=== PATIENT | female | born 1985 | race Caucasian/White ===

== ENCOUNTER 2017-10-16 13:04 | Observation (INO) | payer OTHER ==
[~2017-10-16] VITALS: Ht 154.9 cm; Wt 56.0 kg
[~2017-10-16 13:04] MED LIST: CEPH500 PO; LEVA750T PO; LORTA5 PO; TAB-TAB PO; ZOFR8TAB PO
[2017-10-16] MEDS ORDERED: TERBUTALINE INJ 1 MG/ML AMP ONE (13:43)
[2017-10-16] MEDS ORDERED: TERBUTALINE INJ 1 MG/ML AMP SQ STA (13:50)
--- NOTE | 2017-10-16 13:50 | PD ---
HPI Chief Complaint Abdominal pain Date Seen: October 16, 2017 Time Seen: 13:45 Travel History International Travel<30 Days: No Contact w/Intl Traveler<30Days: No Known Affected Area: No History of Present Illness HPI 32-year-old who is at 21 weeks 4 days comes in complaining abdominal pain. She states that her belly is getting extremely tight and it woke her up from sleep approximately 30 minutes to an hour ago. It was not associated with vaginal bleeding, vaginal discharge or ruptured membranes. Patient did have intercourse approximately 2 hours ago and during intercourse had significant orgasmic activity and took a nap. No previous episodes this . Denies pain or trauma during coitus. Weeks Gestation: 21 Para: 1 : 2 History Past Medical History Medical History: Denies Significant Hx Obstetric History Obstetric History at term Past Surgical History Narrative Surgical Benign tumor Family History Family History: Negative Social History Alcohol Use: No Tobacco Use: No Substance Abuse: No Allergies-Medications (Allergen,Severity, Reaction): Coded Allergies: No Known Allergies (Verified Adverse Reaction, Unknown, 10/16/17) Home Meds Active Scripts Ondansetron Hcl (Zofran Tab) 8 Mg Tab, 4 MG PO Q6HR Y for NAUSEA, #12 TAB Prov:Wilton Hutchins MD 06/20/15 Cephalexin Monohydrate (Keflex 500 mg Cap) 500 Mg Cap, 500 MG PO Q6HR for Infection for 7 Days, CAP Prov:Wilton Hutchins MD 06/20/15 Levofloxacin (Levaquin 750 Mg Tab) 750 Mg Tab, 750 MG PO DAILY for Infection for 7 Days, TAB Prov:Wilton Hutchins MD 06/20/15 Hydrocodone/Acetaminophen 5 mg/325 mg (Hydrocodone/Acetaminophen 5 mg/325 mg) 1 Tab Tab, 1 TAB PO Q6HR Y for pain, #28 TAB Prov:Wilton Hutchins MD 06/19/15 Reported Medications Multiple Vitamin (Multivitamin) 1 Tab Tab, 1 TAB PO DAILY, TAB 06/19/15 Review of Systems Except as stated in HPI: all other systems reviewed are Neg Physical Exam Narrative GENERAL: Well-nourished, well-developed patient. SKIN: Warm and dry. HEAD: Normocephalic and atraumatic. EYES: No scleral icterus. No injection or drainage. ENT: No nasal drainage noted. Mucous membranes pink. Airway patent. NECK: Supple, trachea midline. No JVD. CARDIOVASCULAR: Regular rate and rhythm without murmurs, gallops, or rubs. RESPIRATORY: Breath sounds equal bilaterally. No accessory muscle use. ABDOMEN/GI: Abdomen soft, non-tender, bowel sounds present, no rebound, no guarding Gravid to [-20] weeks size. Moderately firm uterine contractions noted Fundal Height: [-] GENITOURINARY: External Genitalia: intact and normal in appearance BUS glands: [-] Normal Cervix: [-] Visually closed on sterile speculum examination. Possible yeast infection noted with discharge Dilatation: [-] Effacement: [-] Station: [-] Presentation: [-] Membranes: [intact or ruptured] Uterine Contractions: [-] FHT's: Doppler 148 Category: [-] Baseline: [-] Reactive: [-] Variability: [-] Decels: [-] EXTREMITIES: No cyanosis or edema. BACK: Nontender without obvious deformity. No CVA tenderness. NEUROLOGICAL: Awake and alert. Motor and sensory grossly within normal limits. Five out of 5 muscle strength in all muscle groups. Normal speech. Patient was given 1 liter of LR with .25mg of Terbutaline with much improvement in symptoms. Patient is, however still quite sore and apprehensive. Will admit for observation given her symptoms. Data Data Vital Signs Reviewed: Yes Orders Orders Terbutaline Inj (Brethine Inj) (10/16/17 13:43) [facility] Medical Record Reviewed: Yes Plan 32yo at 21w4d with post coital tetanic contractions s/p terbutaline and hydration 23 hr obs with pain meds prn Diagnosis Diagnosis: Primary Impression: 21 weeks gestation of Additional Impression: Abdominal pain during in second trimester Makenzie Tariq MD October 16, 2017 13:50
[2017-10-16] MEDS ORDERED: LACTATED RINGER'S 1000 ML INJ 1,000 ML IV ONE (14:00)
[2017-10-16] MEDS ORDERED: LACTATED RINGER'S 1000 ML INJ 1,000 ML IV SCH (15:10)
[2017-10-16] MEDS ORDERED: SODIUM CHLORIDE 0.9% FLUSH 10 ML FLUSH IV FLUSH PRN (15:15)
[2017-10-16 15:24] LABS: BACTERIA, URINE RARE /hpf; BILIRUBIN, URINE NEG (NEG); BLOOD, URINE NEG (NEG); GLUCOSE,URINE NEG (NEG); KETONE, URINE NEG (NEG); NITRITE,URINE NEG (NEG); SQUAMOUS EPITHELIAL CELL URINE 2 /hpf (0-5); URINE COLOR COLORLESS (YELLW/STRAW); URINE LEUKOCYTE ESTERASE MOD (NEG)
[2017-10-16 15:26] LABS: AUTOMATED NEUTROPHIL # 5.8 TH/MM3 (1.8-7.7); BASOPHIL % 0.3 % (0.0-2.0); EOSINOPHIL % 0.5 % (0.0-4.0); HEMATOCRIT 35.7 % (35.0-46.0); HEMOGLOBIN 12.3 GM/DL (11.6-15.3); LYMPH % 25.4 % (9.0-44.0); LYMPHOCYTE # 2.2 TH/MM3 (1.0-4.8); MEAN CELL VOLUME 86.6 FL (80.0-100.0); MEAN CORPUSCULAR HEMOGLOBIN 29.8 PG (27.0-34.0); MEAN CORPUSCULAR HGB CONC 34.5 % (32.0-36.0); MEAN PLATELET VOLUME 7.8 FL (7.0-11.0); MONO % 6.5 % (0.0-8.0); MONOCYTE # 0.6 TH/MM3 (0-0.9); NEUT % 67.3 % (16.0-70.0); PLATELET COUNT 243 TH/MM3 (150-450); RED BLOOD COUNT 4.12 MIL/MM3 (4.00-5.30); RED CELL DISTRIBUTION WIDTH 14.3 % (11.6-17.2); WHITE BLOOD COUNT 8.6 TH/MM3 (4.0-11.0)
[2017-10-16] MEDS: ACETAMINOPHEN 325 MG TAB PO PRN ×2 (15:29→19:22)
[2017-10-16 15:42] LABS: ALBUMIN 3.3 GM/DL (3.4-5.0); AST (GOT) 15 U/L (15-37); BICARBONATE 21.5 MEQ/L (21.0-32.0); BLOOD UREA NITROGEN 12 MG/DL (7-18); CALCIUM 9.3 MG/DL (8.5-10.1); CHLORIDE 106 MEQ/L (98-107); CREATININE 0.68 MG/DL (0.50-1.00); GLOMERULAR FILTRATION RATE 102 ML/MIN (>89); GLUCOSE,RANDOM 82 MG/DL (74-106); SODIUM (NA) 139 MEQ/L (136-145)
[2017-10-16 15:43] LABS: ALT (GPT) 22 U/L (10-53)
[2017-10-16 15:45] LABS: ALKALINE PHOSPHATASE 81 U/L (45-117); TOTAL BILIRUBIN ADULT 0.3 MG/DL (0.2-1.0); TOTAL PROTEIN 7.6 GM/DL (6.4-8.2)
[2017-10-16] MEDS ORDERED: SODIUM CHLORIDE 0.9% FLUSH 10 ML FLUSH IV FLUSH SCH (21:00)
--- NOTE | 2017-10-17 09:44 | HHI.PR ---
[employer] Note Note pt doing well, denies abdominal pain u/s done WNL cervical length 41mm heart rate regular lungs CTA anterior and posterior abd soft nontender no swelling or pain to lower extremities pt will be d/c and has f/u next week Ashley Mccarthy October 17, 2017 09:44
--- NOTE | 2017-10-17 10:06 | HHI.DCPOC ---
Discharge Care Plan Diagnosis: (1) 21 weeks gestation of (2) Abdominal pain during in second trimester Report Symptoms to Your Doctor -Temperature above 100.5 degrees -Redness, of incision or excessive or foul smelling drainage -Unusual pain or calf pain -Increased vaginal bleeding -Painful or difficulty urinating -Feelings of extreme sadness or anxiety after 2 weeks Goals to Promote Your Health * To prevent worsening of your condition and complications * To maintain your health at the optimal level Directions to Meet Your Goals Take your medications as prescribed Follow your dietary instruction Follow activity as directed Ensure plenty of rest for recovery Drink fluids for hydration Keep your appointments as scheduled Take your immunizations and boosters as scheduled If your symptoms worsen call your PCP, if no PCP go to Urgent Care Center or Emergency Room Smoking is Dangerous to Your Health. Avoid second hand smoke Call the 24-hour crisis hotline for domestic abuse at Ashley Mccarthy October 17, 2017 10:06
== END 2017-10-17 10:58 | disposition home or self-care (01) ==
LOC: HOBED 13:04 → H2EA 15:25
PROVIDERS: ADMIT Obstetrics & Gynecology; ATTEND Obstetrics & Gynecology
DX: O99.89 Other specified diseases and conditions complicating pregnancy, childbirth and the puerperium (principal); R10.9 Unspecified abdominal pain; Z3A.21 21 weeks gestation of pregnancy
CPT/HCPCS: 76816; 80053; 81001; 85025; 96360; 96372; 99285; G0378; J3105; J7120

== ENCOUNTER 2018-02-10 03:59 | Inpatient (IN) ==
[2018-02-10] MEDS ORDERED: Penicillin G Potassium Inj 5,000,000 UNIT in Sodium Chloride 0.9% Inj 100 ML IV.SIG ONE (04:16)
[2018-02-10] MEDS ORDERED: Sodium Chlor 0.9% Inj 500 ML IV.SIG PRN (04:16)
[2018-02-10] MEDS ORDERED: Oxytocin 30 Units/500ml Premix 30 UNITS/500 ML BAG IV.SIG ONE (04:16)
[2018-02-10] MEDS ORDERED: Sod Chloride 0.9% Inj 1,000 ML IV.CONT PRN (04:16)
[2018-02-10] MEDS ORDERED: Naloxone Inj 0.4 MG/ML Vial IV.PUSH PRN ×2 (04:16→06:37)
[2018-02-10] MEDS ORDERED: fentaNYL Citrate Inj 100 MCG/2 ML Ampul IV.PUSH PRN ×2 (04:16)
[2018-02-10] MEDS ORDERED: Citric Acid/Sodium Citrate Liq 30 ML UDC PO SCH (04:30)
--- NOTE | 2018-02-10 04:45 | ED ---
History of Present Illness Primary Care Physician: Dr. Saul Parson MD Chief Complaint: Contractions History of Present Illness: 32 yo F at 38+2 presents to the hospital with contractions that started at 0200 AM this morning. Patient states that the contractions are now occurring a couple of minutes apart. Positive for blood show. movement present. Uncomplicated course. Weeks Gestation:: 38 Para: 1 : 2 Total # of Miscarriage(s): 0 - Inpatient Certification I certify that the inpatient services were ordered in accordance with Medicare regulations governing the order. This includes certification that hospital inpatient services are reasonable and necessary and in the case of services not specified as inpatient-only under 42 CFR 419.22(n), that they are appropriately provided as inpatient services in accordance to with the 2-midnight benchmark under 43 CFR 412.3(e) Estimated Total Length of Stay (Days): 2 Plans for Post Hospital Care: Home Review of Systems All other systems reviewed negative except as stated in [facility] - History History Provided By: Patient - Medical History Medical History: Medical History (Last Updated 02/10/18 @ 04:41 by Katherine Gold DO, R1) Neck mass - Surgical History Surgical History: Surgical History (Last Updated 02/10/18 @ 04:40 by Katherine Gold DO, R1) History of neck surgery - Tobacco History Smoking Status: Never smoker - Alcohol History How Often Do You Have a Drink Containing Alcohol: Never - Substance Use History Substance History: No History of Abuse Medications and Allergies Active Medications: Active Medications Citric Acid/Sodium Citrate (Sodium Citrate/Citric Acid Liq) 30 ml PO [facility] Stop: 02/14/18 04:29 Fentanyl Citrate (Fentanyl Inj) 50 mcg IV.PUSH Q1H PRN PRN Reason: Pain Scale 3 - 5 Fentanyl Citrate (Fentanyl Inj) 100 mcg IV.PUSH Q1H PRN PRN Reason: PAIN SCALE 6 TO 10 Lactated Ringer's (Lr 1000 Ml Inj) 1,000 mls @ 125 mls/hr IV.CONT .Q8H [facility] Lactated Ringer's (Lr 1000 Ml Inj) 1,000 mls @ 3,000 mls/hr IV.SIG UNSCH PRN PRN Reason: compromise or epidural Sodium Chloride (Ns Inj) 500 mls @ 1,000 mls/hr IV.SIG UNSCH PRN PRN Reason: SEE LABEL COMMENTS Sodium Chloride (Ns Inj) 1,000 mls @ 100 mls/hr IV.CONT .Q10H PRN PRN Reason: SEE LABEL COMMENTS Oxytocin (Pitocin 30 Units/Ns 500 Ml Premix) 30 units in 500 mls @ 999 mls/hr IV.SIG BOLUS ONE Stop: 02/10/18 04:46 Penicillin G Potassium 5,000, (000 unit/ Sodium Chloride) 100 mls @ 200 mls/hr IV.SIG ONCE ONE Stop: 02/10/18 04:45 Penicillin G Potassium 2,500, (000 unit/ Sodium Chloride) 100 mls @ 200 mls/hr IV.SIG Q4H [facility] Lidocaine HCl (Xylocaine 1% Inj) 10 ml INFILTRATN PRN PRN PRN Reason: For episiotomy repair Stop: 02/12/18 04:15 Lidocaine HCl (Xylocaine 1% Inj) 0.1 ml I-DERMAL PRN PRN PRN Reason: For IV start Stop: 02/13/18 04:15 Mineral Oil (Muri-Lube Oil) 10 ml TOPICAL PRN PRN PRN Reason: PRN perineal massage Naloxone HCl (Narcan Inj) 0.1 mg IV.PUSH Q2M PRN PRN Reason: for opiate reversal Ondansetron HCl (Zofran Inj) 4 mg IV.PUSH Q6H PRN PRN Reason: NAUSEA OR VOMITING Sodium Chloride (Ns Flush) 2 ml IV.FLUSH BID [place] Sodium Chloride (Ns Flush) 2 ml IV.FLUSH PRN PRN PRN Reason: FLUSH AFTER USING IV ACCESS Allergies Allergy/AdvReac Type Severity Reaction Status Date / Time No Known Allergies Allergy Verified 02/10/18 04:57 Home Medications Medication Instructions Recorded Confirmed Type PNV b#95-ferrous fumarate-FA 1 tab PO DAILY 02/10/18 02/10/18 History [] ferrous sulfate [iron] 325 mg PO DAILY 02/10/18 02/10/18 History Exam Vital signs: Vital Signs 02/10/18 04:10 02/10/18 04:15 02/10/18 04:17 Temperature 98.1 F Pulse Rate 99 H Respiratory Rate 16 Blood Pressure 129/78 Intake & Output 02/09/18 02/09/18 02/10/18 06:59 18:59 06:59 Weight 138 kg Narrative: GENERAL: Well-nourished, well-developed patient. SKIN: Warm and dry. HEAD: Normocephalic and atraumatic. EYES: No scleral icterus. No injection or drainage. ENT: No nasal drainage noted. Mucous membranes pink. Airway patent. CARDIOVASCULAR: Regular rate and rhythm without murmurs, gallops, or rubs. RESPIRATORY: Breath sounds equal bilaterally. No accessory muscle use. ABDOMEN/GI: Abdomen soft, non-tender, no rebound, no guarding GENITOURINARY: Cervix: midposition Dilation: 6 Effacement: 100 Station: -1 Presentation: Membranes: intact Contractions: every 2-5 min FHT's: Category: I Baseline: 135 Reactive: Y Variability: moderate Decels: N EXTREMITIES: No cyanosis or edema. NEUROLOGICAL: Awake and alert. Motor and sensory grossly within normal limits. Normal speech. Results - Labs CBC & Chem 7: 02/10/18 04:40 Assessment and Plan - Diagnosis (1) 38 weeks gestation of Code(s): Z3A.38 - 38 weeks gestation of Status: Acute - Plan 32 yo F who is 38+2 weeks gestation 1. IUP Category 1 tracing -Continue monitoring 2. Normal labor -currently in active labor -admit to L&D -routine antepartum care 3. GBS positive status -PCN prophylaxis Discharge Plan - Physicians Team Primary Care Provider: Riley Lee Attending Provider: Daryl Cooney V
[2018-02-10] MEDS ORDERED: Lidocaine 1% Inj 50 ML Vial ONE ×2 (04:55→05:47)
[2018-02-10 04:56] LABS: Baso % (Auto) 0.3 % (0.0-2.0); Eos % (Auto) 0.2 % (0.0-4.0); Hematocrit 37.8 % (35.0-46.0); Hemoglobin 13.1 gm/dL (11.6-15.3); Lymph # (Auto) 1.9 th/mm3 (1.0-4.8); Lymph % (Auto) 16.5 % (9.0-44.0); Mean Corpuscular HGB Conc 34.6 % (32.0-36.0); Mean Corpuscular Hemoglobin 29.7 pg (27.0-34.0); Mean Corpuscular Volume 85.8 fL (80.0-100.0); Mean Platelet Volume 7.5 fL (7.0-11.0); Mono # (Auto) 0.8 th/mm3 (0.0-0.9); Mono % (Auto) 6.5 % (0.0-8.0); Neut % (Auto) 76.5 % (16.0-70.0); Platelet Count 241 th/mm3 (150-450); Red Blood Count 4.41 mil/mm3 (4.00-5.30); Red Cell Distribution Width 14.5 % (11.6-17.2); White Blood Count 11.7 th/mm3 (4.0-11.0)
[2018-02-10 05:05] LABS: Amphetamine Urine With Conf Neg (Neg); Benzodiazepine Urine With Conf Neg (Neg)
[2018-02-10 05:17] LABS: Amorphous Sediment,Urine Rare /hpf; Bacteria,Urine Rare /hpf; Bilirubin,Urine Negative (Negative); Clarity,Urine Cloudy (Clear); Color,Urine Yellow (Yellw/Straw); Glucose,Urine (UA) Negative (Negative); Leukocyte Esterase,Urine Moderate (Negative); Mucus,Urine Few /lpf (Occasional); Nitrite,Urine Negative (Negative); Specific Gravity,Urine 1.016 (1.002-1.035); Squamous Epithelial Cell,Urine 6 /hpf (0-5)
--- NOTE | 2018-02-10 05:30 | P.HPOB ---
History of Present Illness Primary Care Physician: Dr. Saul Parson MD Chief Complaint: Contractions History of Present Illness: 32 yo F at 38+2 presents to the hospital with contractions that started at 0200 AM this morning. Patient states that the contractions are now occurring a couple of minutes apart. Positive for blood show. movement present. Uncomplicated course. Weeks Gestation:: 38 Para: 1 : 2 Total # of Miscarriage(s): 0 - Inpatient Certification I certify that the inpatient services were ordered in accordance with Medicare regulations governing the order. This includes certification that hospital inpatient services are reasonable and necessary and in the case of services not specified as inpatient-only under 42 CFR 419.22(n), that they are appropriately provided as inpatient services in accordance to with the 2-midnight benchmark under 43 CFR 412.3(e) Estimated Total Length of Stay (Days): 2 Plans for Post Hospital Care: Home Review of Systems All other systems reviewed negative except as stated in [facility] - History History Provided By: Patient - Medical History Medical History: Medical History (Last Updated 02/10/18 @ 04:41 by Katherine Gold DO, R1) Neck mass - Surgical History Surgical History: Surgical History (Last Updated 02/10/18 @ 04:40 by Katherine Gold DO, R1) History of neck surgery - Tobacco History Smoking Status: Never smoker - Alcohol History How Often Do You Have a Drink Containing Alcohol: Never - Substance Use History Substance History: No History of Abuse Medications and Allergies Active Medications: Active Medications Citric Acid/Sodium Citrate (Sodium Citrate/Citric Acid Liq) 30 ml PO [employer] [facility] Stop: 02/14/18 04:29 Fentanyl Citrate (Fentanyl Inj) 50 mcg IV.PUSH Q1H PRN PRN Reason: Pain Scale 3 - 5 Fentanyl Citrate (Fentanyl Inj) 100 mcg IV.PUSH Q1H PRN PRN Reason: PAIN SCALE 6 TO 10 Lactated Ringer's (Lr 1000 Ml Inj) 1,000 mls @ 125 mls/hr IV.CONT .Q8H [facility] Lactated Ringer's (Lr 1000 Ml Inj) 1,000 mls @ 3,000 mls/hr IV.SIG UNSCH PRN PRN Reason: compromise or epidural Sodium Chloride (Ns Inj) 500 mls @ 1,000 mls/hr IV.SIG UNSCH PRN PRN Reason: SEE LABEL COMMENTS Sodium Chloride (Ns Inj) 1,000 mls @ 100 mls/hr IV.CONT .Q10H PRN PRN Reason: SEE LABEL COMMENTS Oxytocin (Pitocin 30 Units/Ns 500 Ml Premix) 30 units in 500 mls @ 999 mls/hr IV.SIG BOLUS ONE Stop: 02/10/18 04:46 Penicillin G Potassium 5,000, (000 unit/ Sodium Chloride) 100 mls @ 200 mls/hr IV.SIG ONCE ONE Stop: 02/10/18 04:45 Penicillin G Potassium 2,500, (000 unit/ Sodium Chloride) 100 mls @ 200 mls/hr IV.SIG Q4H [facility] Lidocaine HCl (Xylocaine 1% Inj) 10 ml INFILTRATN PRN PRN PRN Reason: For episiotomy repair Stop: 02/12/18 04:15 Lidocaine HCl (Xylocaine 1% Inj) 0.1 ml I-DERMAL PRN PRN PRN Reason: For IV start Stop: 02/13/18 04:15 Mineral Oil (Muri-Lube Oil) 10 ml TOPICAL PRN PRN PRN Reason: PRN perineal massage Naloxone HCl (Narcan Inj) 0.1 mg IV.PUSH Q2M PRN PRN Reason: for opiate reversal Ondansetron HCl (Zofran Inj) 4 mg IV.PUSH Q6H PRN PRN Reason: NAUSEA OR VOMITING Sodium Chloride (Ns Flush) 2 ml IV.FLUSH BID MISSAEL Sodium Chloride (Ns Flush) 2 ml IV.FLUSH PRN PRN PRN Reason: FLUSH AFTER USING IV ACCESS Allergies Allergy/AdvReac Type Severity Reaction Status Date / Time No Known Allergies Allergy Verified 02/10/18 04:57 Home Medications Medication Instructions Recorded Confirmed Type PNV b#95-ferrous fumarate-FA 1 tab PO DAILY 02/10/18 02/10/18 History [] ferrous sulfate [iron] 325 mg PO DAILY 02/10/18 02/10/18 History Exam Vital signs: Vital Signs 02/10/18 04:10 02/10/18 04:15 02/10/18 04:17 Temperature 98.1 F Pulse Rate 99 H Respiratory Rate 16 Blood Pressure 129/78 Intake & Output 02/09/18 02/09/18 02/10/18 06:59 18:59 06:59 Weight 138 kg Narrative: GENERAL: Well-nourished, well-developed patient. SKIN: Warm and dry. HEAD: Normocephalic and atraumatic. EYES: No scleral icterus. No injection or drainage. ENT: No nasal drainage noted. Mucous membranes pink. Airway patent. CARDIOVASCULAR: Regular rate and rhythm without murmurs, gallops, or rubs. RESPIRATORY: Breath sounds equal bilaterally. No accessory muscle use. ABDOMEN/GI: Abdomen soft, non-tender, no rebound, no guarding GENITOURINARY: Cervix: midposition Dilation: 6 Effacement: 100 Station: -1 Presentation: Membranes: intact Contractions: every 2-5 min FHT's: Category: I Baseline: 135 Reactive: Y Variability: moderate Decels: N EXTREMITIES: No cyanosis or edema. NEUROLOGICAL: Awake and alert. Motor and sensory grossly within normal limits. Normal speech. Results - Labs CBC & Chem 7: 02/10/18 04:40 Assessment and Plan - Diagnosis (1) 38 weeks gestation of Code(s): Z3A.38 - 38 weeks gestation of Status: Acute - Plan 32 yo F who is 38+2 weeks gestation 1. IUP Category 1 tracing -Continue monitoring 2. Normal labor -currently in active labor -admit to L&D -routine antepartum care 3. GBS positive status -PCN prophylaxis
[2018-02-10] MEDS ORDERED: Bisacodyl 10 MG Supp RECTAL PRN (06:37)
[2018-02-10] MEDS ORDERED: Oxytocin 30 Units/500ml Premix 30 UNITS/500 ML BAG IV.CONT PRN (06:37)
[2018-02-10] MEDS ORDERED: Zolpidem Tartrate 5 MG Tablet PO PRN (06:37)
[2018-02-10] MEDS ORDERED: Benzocaine 20% Top Spray 60 ML Can TOPICAL PRN (06:37)
[2018-02-10] MEDS ORDERED: Witch Hazel 50%/Glyderin 12.5% 40 Pad Jar RECTAL PRN (06:37)
--- NOTE | 2018-02-10 06:43 | P.OBDELI ---
Weeks Gestation: 38 Anesthesia: Lidocaine local to perineum Vaginal Delivery: Normal Presentation: Occiput anterior Nuchal Cord: None Delayed Cord Clamping (45 sec): Yes Placenta: Spontaneous delivery, Intact, 3 vessel cord Laceration: 1 deg Repair: Vicryl running Estimated blood loss (mL): 200 : Male (Delivery time: 6:17 AM. weight 2900g. : 8/9)
[2018-02-10] MEDS ORDERED: Penicillin G Potassium Inj 2,500,000 UNIT in Sodium Chlor 0.9% Inj 100 ML IV.SIG SCH (08:17)
[2018-02-10] MEDS: Acetaminophen 325 MG Tablet PO PRN ×2 (15:46→22:09)
[2018-02-10] MEDS ORDERED: Measles/Mumps/Rubella Vaccine Inj 0.5 ML Vial SQ ONE (16:00)
[2018-02-10] MEDS ORDERED: Diphtheria/Tetanus/Pertussis Vaccine Inj 0.5 ML Syringe IM ONE (16:00)
[2018-02-10] MEDS: Senna/Docusate Sodium 8.6/50 MG Tablet PO SCH (22:09)
[2018-02-11] MEDS: Senna/Docusate Sodium 8.6/50 MG Tablet PO SCH (08:59)
--- NOTE | 2018-02-11 09:29 | P.PNOB ---
Subjective Post day: 1 Interval history: Patient seen and examined this morning. AFVSS overnight. day #1. Pain controlled. Decreased lochia. Denies dysuria. No breast tenderness. She is feeding the baby via breast. Appetite good. No nausea or vomiting. Patient is passing flatus. No bowel movement yet. Ambulating well. Denies calf pain, shortness of breath, or cough. She otherwise has no other complaints or concerns this morning. Objective Vital Signs/I&O: Vital Signs 02/10/18 20:00 Temperature 98.3 F Pulse Rate 72 Respiratory Rate 18 Blood Pressure 104/72 Result Diagrams: 02/10/18 04:40 Objective Remarks: GENERAL: Well-nourished, well-developed patient. CARDIOVASCULAR: Regular rate and rhythm without murmurs, gallops, or rubs. RESPIRATORY: Breath sounds equal bilaterally. No accessory muscle use. ABDOMEN/GI: Abdomen soft, non-tender. Fundus: Firm, non-tender at umbilicus. GENITOURINARY: Light bleeding. EXTREMITIES: No cyanosis or edema, non-tender, without signs of DVT. Medications and IVs: Active Medications Acetaminophen (Tylenol) 650 mg PO Q4H PRN PRN Reason: PAIN SCALE 1 TO 2 Last Admin: 02/10/18 22:09 Dose: 650 mg Al Hydroxide/Mg Hydroxide (Milk Of Magnesia Liq) 30 ml PO Q12H PRN PRN Reason: Mild Constipation Benzocaine (Americaine 20% [place]) 1 spray TOPICAL Q4H PRN PRN Reason: For Perineum Discomfort Bisacodyl (Dulcolax Supp) 10 mg RECTAL DAILY PRN PRN Reason: SEVERE CONSITIPATION Oxytocin (Pitocin 30 Units/Ns 500 Ml Premix) 30 units in 500 mls @ 100 mls/hr IV.CONT UNSCH PRN PRN Reason: Heavy bleeding Ibuprofen (Motrin) 800 mg PO Q8H PRN PRN Reason: For Cramping Last Admin: 02/11/18 08:59 Dose: 800 mg Lactulose (Lactulose Liq) 30 ml PO DAILY PRN PRN Reason: SEVERE CONSITIPATION Naloxone HCl (Narcan Inj) 0.1 mg IV.PUSH Q2M PRN PRN Reason: for opiate reversal Ondansetron HCl (Zofran Odt) 4 mg PO Q6H PRN PRN Reason: NAUSEA OR VOMITING Senna/Docusate Sodium (Viviana-Colace) 1 tab PO BID [facility] Last Admin: 02/11/18 08:59 Dose: 1 tab Sennosides (Senokot) 17.2 mg PO Q12H PRN PRN Reason: Moderate Constipation Sodium Chloride (Ns Flush) 2 ml IV.FLUSH BID [facility] Last Admin: 02/11/18 08:47 Dose: Not Given Sodium Chloride (Ns Flush) 2 ml IV.FLUSH PRN PRN PRN Reason: FLUSH AFTER USING IV ACCESS Sodium Chloride (Ns Flush) 2 ml IV.FLUSH PRN PRN PRN Reason: FLUSH AFTER USING IV ACCESS Sodium Chloride (Ns Flush) 2 ml IV.FLUSH BID [facility] Last Admin: 02/11/18 08:47 Dose: Not Given [place]/Glycerin (Tucks Pads) 1 applicatio RECTAL QID PRN PRN Reason: HEMORRHOIDS Zolpidem Tartrate (Ambien) 5 mg PO HS PRN PRN Reason: SLEEP Assessment and Plan - Diagnosis (1) 38 weeks gestation of Code(s): Z3A.38 - 38 weeks gestation of Status: Acute - Plan 32 yo F 38+2 weeks gestation 32 year old PPD#1. 1. Care - AFVSS - Encouraged OOB, as tolerated - Motrin prn pain - Advised pelvic rest x 6 weeks -Breast feeding - Contraception: Patient stated she will discuss her options with her OB doctor. - Will f/u with OB provider in [address] Merino
[2018-02-11] MEDS: Acetaminophen 325 MG Tablet PO PRN (15:22)
--- NOTE | 2018-02-12 07:38 | P.PNOB ---
Subjective Post day: 2 Interval history: Patient seen and examined this morning. AFVSS overnight. day #2. Pain controlled. Decreased lochia. Denies dysuria. No breast tenderness. She is feeding the baby via breast. Appetite good. No nausea or vomiting. Patient is passing flatus. Had a bowel movement yesterday. Ambulating well. Denies calf pain, shortness of breath, or cough. She otherwise has no other complaints or concerns this morning. Objective Vital Signs/I&O: Vital Signs 02/11/18 08:00 02/11/18 20:30 Temperature 98.4 F 98.5 F Pulse Rate 73 78 Respiratory Rate 20 18 Blood Pressure 86/56 L 110/72 Result Diagrams: 02/10/18 04:40 Objective Remarks: GENERAL: Well-nourished, well-developed patient. CARDIOVASCULAR: Regular rate and rhythm without murmurs, gallops, or rubs. RESPIRATORY: Breath sounds equal bilaterally. No accessory muscle use. ABDOMEN/GI: Abdomen soft, non-tender. Fundus: Firm, non-tender at umbilicus. GENITOURINARY: Light bleeding. EXTREMITIES: No cyanosis or edema, non-tender, without signs of DVT. Medications and IVs: Active Medications Acetaminophen (Tylenol) 650 mg PO Q4H PRN PRN Reason: PAIN SCALE 1 TO 2 Last Admin: 02/11/18 15:22 Dose: 650 mg Al Hydroxide/Mg Hydroxide (Milk Of Magnesia Liq) 30 ml PO Q12H PRN PRN Reason: Mild Constipation Benzocaine (Americaine 20% [place]) 1 spray TOPICAL Q4H PRN PRN Reason: For Perineum Discomfort Bisacodyl (Dulcolax Supp) 10 mg RECTAL DAILY PRN PRN Reason: SEVERE CONSITIPATION Oxytocin (Pitocin 30 Units/Ns 500 Ml Premix) 30 units in 500 mls @ 100 mls/hr IV.CONT UNSCH PRN PRN Reason: Heavy bleeding Ibuprofen (Motrin) 800 mg PO Q8H PRN PRN Reason: For Cramping Last Admin: 02/11/18 16:50 Dose: 800 mg Lactulose (Lactulose Liq) 30 ml PO DAILY PRN PRN Reason: SEVERE CONSITIPATION Naloxone HCl (Narcan Inj) 0.1 mg IV.PUSH Q2M PRN PRN Reason: for opiate reversal Ondansetron HCl (Zofran Odt) 4 mg PO Q6H PRN PRN Reason: NAUSEA OR VOMITING Senna/Docusate Sodium (Viviana-Colace) 1 tab PO BID [facility] Last Admin: 02/11/18 08:59 Dose: 1 tab Sennosides (Senokot) 17.2 mg PO Q12H PRN PRN Reason: Moderate Constipation Sodium Chloride (Ns Flush) 2 ml IV.FLUSH BID [facility] Last Admin: 02/11/18 08:47 Dose: Not Given Sodium Chloride (Ns Flush) 2 ml IV.FLUSH PRN PRN PRN Reason: FLUSH AFTER USING IV ACCESS Sodium Chloride (Ns Flush) 2 ml IV.FLUSH PRN PRN PRN Reason: FLUSH AFTER USING IV ACCESS Sodium Chloride (Ns Flush) 2 ml IV.FLUSH BID [facility] Last Admin: 02/11/18 08:47 Dose: Not Given Witch [place]/Glycerin (Tucks Pads) 1 applicatio RECTAL QID PRN PRN Reason: HEMORRHOIDS Zolpidem Tartrate (Ambien) 5 mg PO HS PRN PRN Reason: SLEEP Assessment and Plan - Diagnosis (1) 38 weeks gestation of Code(s): Z3A.38 - 38 weeks gestation of Status: Acute - Plan 32 year old PPD#2. 1. Care - AFVSS - Encouraged OOB, as tolerated - Motrin prn pain - Advised pelvic rest x 6 weeks -Breast feeding - Contraception: Patient stated she will discuss her options with her OB doctor. - Will f/u with OB provider in [address] Tam Discharge Planning: Anticipate discharge today
[2018-02-12] MEDS: Acetaminophen 325 MG Tablet PO PRN (09:42)
== END 2018-02-12 13:46 | disposition home or self-care (01) ==
LOC: HOBED 03:59 → H2E 04:22 → H1EA 05:00 → H2E 05:00 → H1EA 08:31
PROVIDERS: ADMIT Obstetrics & Gynecology; ATTEND Obstetrics & Gynecology